=== PATIENT | male | born 1950 | race Asian ===

== ENCOUNTER 2017-01-22 19:29 | Emergency (ER) | payer BC ==
[~2017-01-22] VITALS: Ht 177.8 cm; Wt 102.0 kg
[2017-01-22 20:52] LABS: BASOPHIL % 0.7 % (0-2)
[2017-01-22 20:53] LABS: PLATELET COUNT 143 x10^3mcL (130-400)
[2017-01-22 20:54] LABS: CALCIUM 8.6 mg/dL (8.5-10.1); CHLORIDE SERUM 100 mmol/L (98-107); CREATININE SERUM 0.9 mg/dL (0.7-1.3); GFR1 > 60 mL/min; GLUCOSE SERUM 198 mg/dL (74-106); POTASSIUM SERUM 3.1 mmol/L (3.5-5.1); SODIUM SERUM 136 mmol/L (136-145)
[2017-01-22 21:00] LABS: ALBUMIN 3.6 g/dL (3.4-5.0); ALKALINE PHOSPHATASE 69 U/L (46-116); ALT/SGPT 24 U/L (16-63); AST/SGOT 20 U/L (15-37); BILIRUBIN TOTAL 0.5 mg/dL (0.20-1.00); HDL CHOLESTEROL 49 mg/dL (40-60); LIPASE 141 IU/L (73-393); TOTAL PROTEIN, SERUM 7.9 g/dL (6.4-8.2); TRIGLYCERIDES 95 mg/dL (<150)
[2017-01-22 21:01] LABS: CHOLESTEROL 208 mg/dL (<200); CHOLESTEROL/HDL RATIO 4.2
[2017-01-22 21:10] LABS: FREE T4 1.2 ng/dL (0.76-1.46); FREE THYROXINE INDEX 3.1 ug/dL (1.4-4.5); T4(THYROXINE) 8.8 ug/dL (4.7-13.3)
[2017-01-22 21:11] LABS: T3 TOTAL 1.11 ng/mL
[2017-01-22 21:24] LABS: UA SPECIFIC GRAVITY 1.015 (1.005-1.035); microscopic required? YES; urine erythrocyte 1+ (NEGATIVE)
[2017-01-22 23:19] VITALS: BP 126/79
== END 2017-01-22 23:19 | disposition home or self-care (01) ==
LOC: ED 19:29
PROVIDERS: Specialist
DX: E86.0 Dehydration (principal); R19.7 Diarrhea, unspecified; E66.9 Obesity, unspecified; F41.9 Anxiety disorder, unspecified; I10 Essential (primary) hypertension; Z90.49 Acquired absence of other specified parts of digestive tract
CPT/HCPCS: 83880; 84439; J1885; J2405; J7030